=== PATIENT | male | born 1995 | race Two or more races ===

== ENCOUNTER 2020-07-29 19:56 | Emergency (ER) | payer MEDICAID ==
[~2020-07-29] VITALS: Ht 172.7 cm; Wt 83.2 kg
[~2020-07-29 19:56] MED LIST: NO HOME MEDS
--- NOTE | 2020-07-29 20:58 | NUR ---
provider Shar LIM at bedside
[2020-07-29 21:06] LABS: BASOPHILS % (AUTO) 0.2 % (0-1); EOSINOPHILS % (AUTO) 0.1 % (0-6); HEMATOCRIT 41.8 % (42.0-52.0); HEMOGLOBIN 14.3 g/dl (14.0-17.9); LYMPHOCYTES # (AUTO) 1.1 X10'3 (1.1-4.8); MEAN CORPUSCULAR HEMOGLOBIN 32.8 PG (27.0-31.0); MEAN CORPUSCULAR HGB CONC 34.1 g/dL (33.0-36.5); MEAN CORPUSCULAR VOLUME 96.2 FL (78-98); MEAN PLATELET VOLUME 7.9 FL (7.4-10.4); MONOCYTES # (AUTO) 0.5 X10'3 (0-0.9); NEUTROPHILS # (AUTO) 14.6 X10'3 (1.8-7.7); NEUTROPHILS % (AUTO) 89.7 % (42-75); PLATELET COUNT 236 X10'3 (140-440); RED BLOOD COUNT 4.34 X10'6 (4.70-6.10); RED CELL DISTRIBUTION WIDTH 13.3 % (11.5-14.5); WHITE BLOOD COUNT 16.3 X10'3 (4.5-11.0)
[2020-07-29 21:11] LABS: CLARITY,URINE CLEAR (Clear); COLOR,URINE YELLOW (Yellow); GLUCOSE, URINE NEGATIVE (Neg); KETONES,URINE NEGATIVE (Neg); LEUKOCYTE ESTERASE ,URINE SMALL (Neg); NITRITES, URINE NEGATIVE (Neg); OCCULT BLOOD,URINE NEGATIVE (Neg); PH,URINE 7.5 (4.8-8.0); PROTEIN,URINE NEGATIVE (Neg); URINE AMPHETAMINE SCREEN NEGATIVE (Neg); URINE BARBITUATE SCREEN NEGATIVE (Neg); URINE BENZODIAZEPINES SCREEN NEGATIVE (Neg); URINE CANNABINOID SCREEN POSITIVE (Neg); URINE COCAINE SCREEN NEGATIVE (Neg); URINE METHADONE SCREEN NEGATIVE (Neg); URINE OPIATE SCREEN NEGATIVE (Neg); URINE PHENCYCLIDINE SCREEN NEGATIVE (Neg); UROBILINOGEN,URINE 0.2 E.U/dL (0.2-1.0)
[2020-07-29 21:15] LABS: UA COLLECTION TYPE CLN CATCH MIDSTREAM
[2020-07-29 21:16] LABS: WBC,URINE 30-50 /HPF (0-4)
[2020-07-29 21:17] LABS: BACTERIA,URINE NONE SEEN /HPF (Neg); RBC,URINE NONE SEEN /HPF (0-2); SQUAMOUS EPITHELIAL CELL,UR FEW /LPF (FEW)
[2020-07-29 21:24] LABS: ALANINE AMINOTRANSFERASE 44 U/L (12-78); ALBUMIN 4.6 G/DL (3.4-5.0); ALBUMIN/GLOBULIN RATIO 1.2 (1.1-1.5); ALKALINE PHOSPHATASE 58 IU/L (46-116); ANION GAP 9 (8-16); ASPARTATE AMINO TRANSFERASE 23 U/L (10-37); BILIRUBIN,TOTAL 0.4 MG/DL (0.1-1.0); BLOOD UREA NITROGEN 14 MG/DL (7-18); BUN/CREATININE RATIO 17.7 (5.4-32.0); CHLORIDE 103 MMOL/L (99-107); CREATININE 0.79 MG/DL (0.60-1.10); GLUCOSE 109 MG/DL (70-104); POTASSIUM 3.9 MMOL/L (3.5-5.1); SODIUM 138 MMOL/L (135-145); TOTAL CARBON DIOXIDE 25.9 MMOL/L (24-32); TOTAL PROTEIN 8.6 G/DL (6.4-8.2); eGFR > 90 ML/MIN
[2020-07-29 21:31] LABS: ETHANOL < 0.010 GM/DL (0.0-0.010)
--- NOTE | 2020-07-29 21:40 | NUR ---
pt standing at the end of his bed, requests med for agitation, will obtain order for meds
[2020-07-29] MEDS: diphenhydrAMINE 25mg capsule PO ONE (21:45)
[2020-07-29] MEDS: LORazepam 1 MG tablet PO ONE (21:45)
[2020-07-29 21:46] LABS: ACETAMINOPHEN < 2.0 UG/ML (10-30)
[2020-07-29 22:15] LABS: CALCIUM 9.7 MG/DL (8.5-10.1)
--- NOTE | 2020-07-29 22:50 | NUR ---
pt is asleep, resting on left side, regular breathing observed, no needs at this time
[2020-07-29] MEDS: CefTRIAXone 250MG IM Kit w/LIDOcaine IM ONE (23:57)
[2020-07-29] MEDS: DOXYCYCLINE 100MG CAPSULE PO STA (23:57)
--- NOTE | 2020-07-30 00:11 | NUR ---
pt is accepting of medications, calm, no other needs at this time
--- NOTE | 2020-07-30 00:59 | NUR ---
pt is sleeping on his right side, regular breathing present, will continue to monitor
[2020-07-30] MEDS ORDERED: DOXY100C2 PO (01:01)
--- NOTE | 2020-07-30 02:06 | NUR ---
pt is sleeping on his left side, regular breathing observed, will continue to monitor
--- NOTE | 2020-07-30 02:47 | NUR ---
Faxed packet to [facility] office
--- NOTE | 2020-07-30 03:05 | NUR ---
pt is supine in bed, regular breathing present, no needs at this time
--- NOTE | 2020-07-30 04:02 | NUR ---
pt is asleep
--- NOTE | 2020-07-30 05:00 | NUR ---
pt is supine in bed, regular breathing observed no needs at this time
--- NOTE | 2020-07-30 05:59 | NUR ---
pt is having vitals done, calm, no needs at this time
[2020-07-30 06:06] VITALS: BP 108/57
--- NOTE | 2020-07-30 09:00 | NUR ---
MORNING REMAINS UNEVENTFUL, PT CALM AND COOPERATIVE.
--- NOTE | 2020-07-30 10:50 | NUR ---
PT BEING SEEN BY [facility] AT BEDSIDE
--- NOTE | 2020-07-30 11:54 | NUR ---
PT TAKEN OFF 5150 AND DISCHARGE HOME.
== END 2020-07-30 12:40 | disposition home or self-care (01) ==
LOC: ER 19:56
DX: R45.851 Suicidal ideations (principal); Z20.2 Contact with and (suspected) exposure to infections with a predominantly sexual mode of transmission; N28.89 Other specified disorders of kidney and ureter; F31.9 Bipolar disorder, unspecified; F12.90 Cannabis use, unspecified, uncomplicated; F15.90 Other stimulant use, unspecified, uncomplicated; Z88.1 Allergy status to other antibiotic agents; Z79.2 Long term (current) use of antibiotics
CPT/HCPCS: 36415; 80053; 80305; 80320; 80329; 81001; 84443; 85025; 87491; 87591; 96372; 99285; J0696; Q0163

== ENCOUNTER 2021-02-21 21:37 | Emergency (ER) | payer MEDICAID | END 2021-02-22 00:21 | disposition left against medical advice (07) | LOC: ER 21:38 | DX: Z53.21 Procedure and treatment not carried out due to patient leaving prior to being seen by health care provider (principal) ==

== ENCOUNTER 2021-07-09 15:32 | Emergency (ER) | payer MEDICAID ==
[~2021-07-09] VITALS: Ht 172.7 cm; Wt 81.0 kg
[2021-07-09 15:51] VITALS: BP 112/41
[2021-07-09] MEDS ORDERED: MECL-231 PO (16:06)
== END 2021-07-09 16:11 | disposition home or self-care (01) ==
LOC: ER 15:32
DX: R42 Dizziness and giddiness (principal); F31.9 Bipolar disorder, unspecified; F12.90 Cannabis use, unspecified, uncomplicated; F15.90 Other stimulant use, unspecified, uncomplicated; Z88.1 Allergy status to other antibiotic agents; Z79.899 Other long term (current) drug therapy
CPT/HCPCS: 99281

== ENCOUNTER 2021-09-18 13:50 | Emergency (ER) | payer MEDICAID ==
[~2021-09-18] VITALS: Ht 172.7 cm; Wt 90.0 kg
[~2021-09-18 13:50] MED LIST changes: +MECL-231 PO
[2021-09-18 13:55] VITALS: BP 117/75
--- NOTE | 2021-09-18 16:13 | NUR ---
Pt stated to PA that "can't stay" if his significant other was unable to be at bedside. Visitor policy and COVID restrictions explained to pt. When PA returned, pt had eloped from dept.
== END 2021-09-18 16:15 | disposition left against medical advice (07) ==
LOC: ER 13:52
DX: R51.9 Headache, unspecified (principal); Z53.21 Procedure and treatment not carried out due to patient leaving prior to being seen by health care provider

== ENCOUNTER 2021-10-21 12:42 | Emergency (ER) | payer MEDICAID ==
[~2021-10-21] VITALS: Ht 172.7 cm; Wt 83.0 kg
[~2021-10-21 12:42] MED LIST changes: +CYCL-1 PO; +KEP500T PO; -MECL-231 PO; -NO HOME MEDS; +PALI156D IM; +PROP10TA10 PO; +SERT50TA PO
[2021-10-21] MEDS ORDERED: levetiracetam inj 1,000 MG in normal saline 100ml IV soln 90 ML IV STA (14:43)
[2021-10-21] MEDS ORDERED: normal saline 1000ML IV soln IVB ONE (14:45)
[2021-10-21] MEDS ORDERED: LORazepam 2 mg/ml vial IV ONE (14:45)
[2021-10-21] MEDS ORDERED: magnesium 2GM in 50ml NS 50 ML IV ONE (14:45)
[2021-10-21] MEDS ORDERED: levetiracetam-NS 1000mg/100ml 100 ML IV STA (14:49)
[2021-10-21 15:06] LABS: BASOPHILS % (AUTO) 0.2 % (0-1); EOSINOPHILS % (AUTO) 0.1 % (0-6); HEMATOCRIT 39.6 % (42.0-52.0); HEMOGLOBIN 13.8 g/dl (14.0-17.9); LYMPHOCYTES % (AUTO) 8.8 % (21-51); MEAN CORPUSCULAR HEMOGLOBIN 32.9 PG (27.0-31.0); MEAN CORPUSCULAR HGB CONC 34.8 g/dL (33.0-36.5); MEAN CORPUSCULAR VOLUME 94.6 FL (78-98); MONOCYTES # (AUTO) 0.6 X10'3 (0-0.9); MONOCYTES % (AUTO) 5.2 % (2-12); NEUTROPHILS % (AUTO) 85.7 % (42-75); PLATELET COUNT 193 X10'3 (140-440); RED BLOOD COUNT 4.19 X10'6 (4.70-6.10); RED CELL DISTRIBUTION WIDTH 12.4 % (11.5-14.5); WHITE BLOOD COUNT 11.6 X10'3 (4.5-11.0)
[2021-10-21 15:29] LABS: ALANINE AMINOTRANSFERASE 25 U/L (12-78); ALBUMIN 4.3 G/DL (3.4-5.0); ALBUMIN/GLOBULIN RATIO 1.2 (1.1-1.5); ALKALINE PHOSPHATASE 59 IU/L (46-116); ANION GAP 11 (8-16); ASPARTATE AMINO TRANSFERASE 14 U/L (10-37); BILIRUBIN,TOTAL 0.4 MG/DL (0.1-1.0); BLOOD UREA NITROGEN 11 MG/DL (7-18); BUN/CREATININE RATIO 16.4 (5.4-32.0); CALCIUM 8.8 MG/DL (8.5-10.1); CHLORIDE 105 MMOL/L (99-107); CREATINE KINASE 73 U/L (39-308); CREATININE 0.67 MG/DL (0.60-1.10); GLUCOSE 97 MG/DL (70-104); POTASSIUM 3.7 MMOL/L (3.5-5.1); SODIUM 143 MMOL/L (135-145); TOTAL CARBON DIOXIDE 27.5 MMOL/L (24-32); eGFR > 90 ML/MIN
[2021-10-21 17:23] VITALS: BP 118/77
== END 2021-10-21 17:32 | disposition home or self-care (01) ==
LOC: ER 12:43
DX: R56.9 Unspecified convulsions (principal); R53.83 Other fatigue; F31.9 Bipolar disorder, unspecified; F20.9 Schizophrenia, unspecified; F12.90 Cannabis use, unspecified, uncomplicated; F15.90 Other stimulant use, unspecified, uncomplicated; Z86.69 Personal history of other diseases of the nervous system and sense organs; Z88.1 Allergy status to other antibiotic agents; Z79.899 Other long term (current) drug therapy
CPT/HCPCS: 36415; 80053; 82550; 85025; 93005; 96365; 96366; 96368; 96375; 99284; J1953; J2060; J3475; J7030

== ENCOUNTER 2024-08-20 15:44 | Emergency (ER) | payer MEDICAID ==
[~2024-08-20] VITALS: Ht 170.2 cm; Wt 94.6 kg
[~2024-08-20 15:44] MED LIST changes: +ATOM40CA PO; +CLON0.1T2 PO; -CYCL-1 PO; +HYDR-3686 PO; -KEP500T PO; +LEVE500T PO; +LURA60TA PO; -PALI156D IM; -PROP10TA10 PO; +SERT-433 PO; -SERT50TA PO
[2024-08-20 16:47] LABS: BASOPHILS % (AUTO) 0.2 % (0-1); EOSINOPHILS # (AUTO) 0.1 X10'3 (0-0.9); EOSINOPHILS % (AUTO) 0.5 % (0-6); HEMATOCRIT 42.2 % (42.0-52.0); HEMOGLOBIN 14.3 g/dl (14.0-17.9); LYMPHOCYTES # (AUTO) 1.7 X10'3 (1.1-4.8); LYMPHOCYTES % (AUTO) 11.3 % (21-51); MEAN CORPUSCULAR HGB CONC 33.9 g/dL (33.0-36.5); MEAN CORPUSCULAR VOLUME 97.2 FL (78-98); MEAN PLATELET VOLUME 8.1 FL (7.4-10.4); MONOCYTES # (AUTO) 0.7 X10'3 (0-0.9); MONOCYTES % (AUTO) 4.3 % (2-12); NEUTROPHILS # (AUTO) 12.8 X10'3 (1.8-7.7); NEUTROPHILS % (AUTO) 83.7 % (42-75); PLATELET COUNT 276 X10'3 (140-440); RED BLOOD COUNT 4.34 X10'6 (4.70-6.10); RED CELL DISTRIBUTION WIDTH 12.9 % (11.5-14.5); WHITE BLOOD COUNT 15.3 X10'3 (4.5-11.0)
[2024-08-20 17:24] LABS: ALBUMIN 3.9 G/DL (3.4-5.0); ANION GAP 9 (8-16); BLOOD UREA NITROGEN 14 MG/DL (7-18); BUN/CREATININE RATIO 17.5 (10.0-20.0); CALCIUM 8.9 MG/DL (8.5-10.1); CHLORIDE 103 MMOL/L (99-107); ETHANOL < 10 MG/DL (<10); GLUCOSE 110 MG/DL (70-104); POTASSIUM 3.9 MMOL/L (3.5-5.1); SODIUM 140 MMOL/L (135-145); THYROID STIMULATING HORMONE 3.35 ulU/ml (0.34-4.50); TOTAL CARBON DIOXIDE 28.3 MMOL/L (24-32); eCRCL 130 ML/MIN; eGFR > 90 ML/MIN
[2024-08-20 18:15] LABS: BILIRUBIN,URINE NEGATIVE (Neg); CLARITY,URINE CLEAR (Clear); COLOR,URINE YELLOW (Yellow); GLUCOSE, URINE NEGATIVE (Neg); KETONES,URINE NEGATIVE (Neg); LEUKOCYTE ESTERASE ,URINE NEGATIVE (Neg); NITRITES, URINE NEGATIVE (Neg); OCCULT BLOOD,URINE NEGATIVE (Neg); PROTEIN,URINE NEGATIVE (Neg); UROBILINOGEN,URINE 0.2 E.U/dL (0.2-1.0)
[2024-08-20 18:16] LABS: UA COLLECTION TYPE CLN CATCH MIDSTREAM
[2024-08-20 18:21] LABS: URINE AMPHETAMINE SCREEN NEGATIVE (Neg); URINE BARBITUATE SCREEN NEGATIVE (Neg); URINE BENZODIAZEPINES SCREEN NEGATIVE (Neg); URINE CANNABINOID SCREEN POSITIVE (Neg); URINE COCAINE SCREEN NEGATIVE (Neg); URINE METHADONE SCREEN NEGATIVE (Neg); URINE OPIATE SCREEN NEGATIVE (Neg); URINE PHENCYCLIDINE SCREEN NEGATIVE (Neg)
[2024-08-20] MEDS ORDERED: ATOM80CA3 PO (20:35)
[2024-08-20] MEDS ORDERED: HYDR50TA65 PO (20:35)
[2024-08-20] MEDS ORDERED: LURA60TA4 PO (20:35)
[2024-08-20] MEDS ORDERED: ATOM80CA PO (21:31)
[2024-08-21 14:57] VITALS: BP 111/67; PULSE 83; RESP 16; TEMP 98.2; O2SAT 98
== END 2024-08-21 11:24 ==
LOC: ER 15:45
DX: R45.851 Suicidal ideations (principal); F31.9 Bipolar disorder, unspecified; F12.90 Cannabis use, unspecified, uncomplicated; F15.90 Other stimulant use, unspecified, uncomplicated; Z20.822 Contact with and (suspected) exposure to COVID-19; Z88.0 Allergy status to penicillin; Z91.011 Allergy to milk products
CPT/HCPCS: 36415; 80048; 80305; 80320; 81003; 84443; 85025; 87811; 99285

== ENCOUNTER 2025-04-22 20:03 | Emergency (ER) | payer MEDICAID ==
[~2025-04-22] VITALS: Ht 172.7 cm; Wt 91.4 kg
[~2025-04-22 20:03] MED LIST changes: +ATOM80CA PO; -HYDR-3686 PO; +HYDR50TA65 PO
[2025-04-22 20:24] VITALS: TEMP 98.6
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
--- NOTE | 2025-04-22 21:07 | RADIOLOGY REPORT ---
CLINICAL INDICATION: Shoulder Pain TECHNIQUE: 2 views DI SHOULDER, COMPLETE (MIN 2 VWS) Comparison: None FINDINGS: Assessment is limited by lack of orthogonal view. No evidence of acute fracture or dislocation. No significant degenerative change. Plate-screw fixation of the clavicle with healed fracture and no evidence of hardware complication. Unremarkable soft tissues and imaged chest. IMPRESSION: 1. No acute abnormality of the left shoulder on limited exam.
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
[2025-04-22] MEDS ORDERED: IBUP-1986 PO (22:59)
[2025-04-22] MEDS: ketorolac trometh 15mg/ml vial 15 MG/ML ML IM ONE (23:12)
[2025-04-22 23:17] VITALS: BP 111/69; PULSE 63; RESP 18; O2SAT 98
== END 2025-04-22 23:33 | disposition home or self-care (01) ==
LOC: ER 20:03
DX: S00.511A Abrasion of lip, initial encounter (principal); S09.90XA Unspecified injury of head, initial encounter; M25.512 Pain in left shoulder; F41.9 Anxiety disorder, unspecified; F12.90 Cannabis use, unspecified, uncomplicated; F31.9 Bipolar disorder, unspecified; F15.90 Other stimulant use, unspecified, uncomplicated; Z91.0110 Allergy to milk products, unspecified; Z88.1 Allergy status to other antibiotic agents; Z79.899 Other long term (current) drug therapy; V00.148A Other scooter (nonmotorized) accident, initial encounter; Y93.89 Activity, other specified; Y92.89 Other specified places as the place of occurrence of the external cause; Y99.8 Other external cause status
CPT/HCPCS: 70450; 70486; 72125; 73030; 96372; 99285; J1885